=== PATIENT | male | born 1955 | race Caucasian/White ===

== ENCOUNTER → 2016-02-21 | Outpatient (CLI) | payer OTHER ==
--- NOTE | 2016-02-22 07:40 | XR ---
EXAMINATION TYPE: XR chest 2V DATE OF EXAM: 02/21/2016 1:59 PM COMPARISON: 05/11/2015 HISTORY: Shortness of breath TECHNIQUE: Frontal and lateral views of the chest are obtained. FINDINGS: Scattered senescent parenchymal changes noted. Hyperinflation compatible with COPD. Increased density right medial lung base may reflect developing infiltrate. Correlate clinically prog ress studies are recommended. Heart size is stable. Mediastinal structures are stable and grossly unremarkable. No evidence for hilar prominence. Degenerative changes dorsal spine. IMPRESSION: 1. Increased density right medial lung base may reflect developing infiltrate. Correlate clinically p rogress studies are recommended.
== END | disposition home or self-care (01) ==
LOC: RADXRYALE 13:49
PROVIDERS: ATTEND Internal Medicine
DX: J98.4 Other disorders of lung (principal)
CPT/HCPCS: 71020

== ENCOUNTER 2018-09-09 15:55 | Emergency (ER) | payer BC ==
[2018-09-09 16:01] VITALS: BP 153/84; PULSE 77; RESP 16; TEMP 97.8
[2018-09-09] MEDS ORDERED: LIDOCAINE 1% INJ 10MG/ML (20 ML MDV) SQ ONE (16:07)
[2018-09-09] MEDS ORDERED: DIPH,PERTUS(ACELL)TETVAC-LF 0.5 ML VIAL IM ONE (16:07)
--- NOTE | 2018-09-09 16:17 | ED ---
General Adult HPI - General Chief complaint: Wound/Laceration Stated complaint: finger lac Source: patient, RN notes reviewed Mode of arrival: ambulatory Limitations: no limitations - History of Present Illness Initial comments: 63-year-old male presents to the emergency department for a chief complaint of laceration to the left second digit. Patient states less than one hour prior to arrival he was using a table saw when he accidentally cut his finger. States his tetanus is not up-to-date. Denies any other injuries. Denies being on blood thinners.Patient has no other complaints at this time including shortness of breath, chest pain, abdominal pain, nausea or vomiting, headache, or visual changes. - Related Data Home Medications Medication Instructions Recorded Confirmed amLODIPine BESYLATE/BENAZEPRIL 1 tab PO DAILY 05/11/15 05/11/15 [Amlodipine-Benazepril 5-20 mg] Previous Rx's Medication Instructions Recorded Cephalexin [Keflex] 500 mg PO Q6HR 7 Days cap 09/09/18 Allergies Allergy/AdvReac Type Severity Reaction Status Date / Time prednisolone Allergy Rapid Verified 09/09/18 16:01 Heart Rate Review of Systems ROS Statement: Those systems with pertinent positive or pertinent negative responses have been documented in the HPI. ROS Other: All systems not noted in ROS Statement are negative. Past Medical History Past Medical History: Hypertension History of Any Multi-Drug Resistant Organisms: None Reported Past Surgical History: Hernia Repair Past Psychological History: No Psychological Hx Reported Smoking Status: Former smoker Past Alcohol Use History: Occasional Past Drug Use History: None Reported General Exam Limitations: no limitations General appearance: alert, in no apparent distress Head exam: Present: atraumatic, normocephalic, normal inspection Eye exam: Present: normal appearance, PERRL, EOMI. Absent: scleral icterus, conjunctival injection, periorbital swelling ENT exam: Present: normal exam, mucous membranes moist Neck exam: Present: normal inspection, full ROM. Absent: tenderness, meni ngismus, lymphadenopathy Respiratory exam: Present: normal lung sounds bilaterally. Absent: respiratory distress, wheezes, rales, rhonchi, stridor Cardiovascular Exam: Present: regular rate, normal rhythm, normal heart sounds. Absent: systolic murmur, diastolic murmur, rubs, gallop, clicks Extremities exam: Present: normal capillary refill (Capillary refill is 2 seconds in left second digit, radial pulse 2+.), other (4 cm laceration of the left second finger distal phalanx. This extends from the nail bed around to the volar aspect of the finger.) Neurological exam: Present: alert, oriented X3, CN II-XII intact Psychiatric exam: Present: normal affect, normal mood Course Vital Signs 09/09/18 15:57 Temperature 97.8 F Pulse Rate 77 Respiratory 16 Rate Blood Pressure 153/84 O2 Sat by Pulse 96 Oximetry Procedures - Laceration Laceration #1 Consent Obtained: verbal consent Indication: laceration Site: other (Left second digit) Size (cm): 4 Description: irregular Depth: involves muscle layer Anesthetic Used: lidocaine 1% Anesthesia Technique: local infiltration Amount (mls): 6 Pre-repair: wound explored, irrigated extensively (With saline pressure irrigation and 2 L of saline irrigation) Type of Sutures: other (Ethilon) Size of Sutures: 5-0 Number of Sutures: 9 Technique: simple, interrupted Patient Tolerated Procedure: well, no complications Additional Comments: Distal nail was removed to allow for nail bed repair. Proximal nail intact. Medical Decision Making - Medical Decision Making 63-year-old male presents to the emergency department for a chief complaint of laceration to the left second digit. This occurred less than one hour ago by a table saw. Patient was updated on tetanus. X-ray was obtained which was a markedly comminuted fracture of the subingual tuft with associated soft tissue injury. Patient is a 4 cm laceration of the distal phalanx. This was cleaned thoroughly with 2 L of saline water irrigation and followed by saline pressure irrigation. Distal nail was removed to repaired nail bed. 9 sutures were used to loosely tacked together laceration and allow for drainage. Patient was given IM Ancef and a prescription for Keflex. Given Tylenol 3 starter pack. Discussed in depth following up with orthopedics and he was given referrals. Di scussed monitoring for signs of infection thoroughly. Since returning here in 7-10 days for suture removal. Patient will return if he has any signs of infection or other worsening symptoms as well. Disposition Clinical Impression: Open fracture of finger, distal phalanx, Laceration Disposition: HOME SELF-CARE Condition: Good Instructions (If sedation given, give patient instructions): Care For Your Stitches (ED), Laceration (ED), Finger Fracture (ED) Additional Instructions: Please take antibiotics as directed. Take tylenol [address] operate machinery while taking this. Monitor for signs of infection such as redness drainage or fever and return immediately if these occur. Return if you have any other worsening symptoms. Otherwise follow up with orthopedics tomorrow. Prescriptions: Cephalexin [Keflex] 500 mg PO Q6HR 7 Days cap Is patient prescribed a controlled substance at d/c from ED?: No Referrals: Monica Hoffmann MD [Primary Care Provider] - 1-2 days Edwin Trammell DO [Medical Doctor] - 1-2 days Adrien Almaguer DO [Doctor of Osteopathic Medicine] - 1-2 days Time of Disposition: 17:48
[2018-09-09] MEDS ORDERED: ceFAZolin 1,000 MG VIAL (IM USE) IM STA (16:27)
--- NOTE | 2018-09-09 16:29 | XR ---
EXAMINATION TYPE: XR finger LT DATE OF EXAM: 09/09/2018 CLINICAL HISTORY: pain Left second digit. TECHNIQUE: 3 views of the left second digit are submitted. COMPARISON: None FINDINGS: Markedly comminuted fracture subungual tuft with associated soft tissue injury. Joint space s are well-preserved. IMPRESSION: Markedly comminuted fracture subungual tuft with associated soft tissue injury.
[2018-09-09] MEDS ORDERED: ACET/COD 300 MG/30 MG STARTER PACK 6 TAB BTL PO STA (17:49)
== END 2018-09-09 18:13 | disposition home or self-care (01) ==
LOC: EC 15:55
DX: S62.631B Displaced fracture of distal phalanx of left index finger, initial encounter for open fracture (principal); I10 Essential (primary) hypertension; Z23 Encounter for immunization; Z87.891 Personal history of nicotine dependence; Z98.890 Other specified postprocedural states; Z79.899 Other long term (current) drug therapy; Z88.8 Allergy status to other drugs, medicaments and biological substances; W31.2XXA Contact with powered woodworking and forming machines, initial encounter; Y93.89 Activity, other specified
CPT/HCPCS: 73140; 90715; 99283; 11760; 90471; 96372; J0690; J2001

== ENCOUNTER → 2019-03-15 | Outpatient (CLI) | payer MEDICARE ==
--- NOTE | 2019-03-16 12:32 | ECHOF ---
Referral Reason:Cellulitis MEASUREMENTS -------- HEIGHT: 177.8 cm WEIGHT: 90.7 kg BP: IVSd: 1.0 cm (0.6 - 1.1) LVIDd: 5.5 cm (3.9 - 5.3) LVPWd: 1.5 cm (0.6 - 1.1) IVSs: 2.0 cm LVIDs: 3.5 cm LVPWs: 1.8 cm Ao Diam: 3.6 cm (2.0 - 3.7) AV Cusp: 2.3 cm (1.5 - 2.6) LA Diam: 3.1 cm (2.7 - 3.8) MV EXCURSION: 15.488 mm (> 18.000) MV EF SLOPE: 112 mm/s (70 - 150) EPSS: 1.0 cm MV E Al: 0.63 m/s MV DecT: 203 ms MV A Al: 0.91 m/s MV E/A Ratio: 0.69 RAP: 5.00 mmHg RVSP: 15.25 mmHg FINDINGS -------- Sinus rhythm. This was a technically adequate study. The left ventricular size is normal. There is mild concentric left ventricular hypertrophy. Overa ll left ventricular systolic function is normal with, an EF between 55 - 60 %. The right ventricle is normal in size. The left atrial size is normal. The right atrial size is normal. The aortic valve is trileaflet and appears structurally normal. The mitral valve is normal. Mild mitral regurgitation is present. The tricuspid valve appears structurally normal. Mild tricuspid regurgitation present. Right vent ricular systolic pressure is normal at < 35 mmHg. There is no pulmonic regurgitation present. The aortic root size is normal. Normal inferior vena cava with normal inspiratory collapse consistent with estimated right atrial pre ssure of 5 mmHg. There is no pericardial effusion. CONCLUSIONS -------- 1. Sinus rhythm. 2. This was a technically adequate study. 3. The left ventricular size is normal. 4. There is mild concentric left ventricular hypertrophy. 5. Overall left ventricular systolic function is normal with, an EF between 55 - 60 %. 6. The right ventricle is normal in size. 7. The left atrial size is normal. 8. The right atrial size is normal. 9. The aortic valve is trileaflet and appears structurally normal. 10. The mitral valve is normal. 11. Mild mitral regurgitation is present. 12. The tricuspid valve appears structurally normal. 13. Mild tricuspid regurgitation present. 14. Right ventricular systolic pressure is normal at < 35 mmHg. 15. There is no pulmonic regurgitation present. 16. The aortic root size is normal. 17. Normal inferior vena cava with normal inspiratory collapse consistent with estimated right atrial pressure of 5 mmHg. 18. There is no pericardial effusion. PRODUCTION ADMINISTRATIVE ASSISTANT: Carmita Worthy RDCS
== END | disposition home or self-care (01) ==
LOC: RADECHMAIN 14:50
PROVIDERS: ATTEND Internal Medicine
DX: I08.1 Rheumatic disorders of both mitral and tricuspid valves (principal); I21.9 Acute myocardial infarction, unspecified
CPT/HCPCS: 93306

== ENCOUNTER 2021-09-04 07:14 | Day surgery (SDC) | payer MEDICARE ==
[2021-08-31 12:15] VITALS: BMI 26.4
[~2021-09-04 07:14] MED LIST: LACTATED RINGERS 1,000 ML IV SCH
[2021-09-04 07:49] VITALS: TEMP 97.2
[2021-09-04] MEDS ORDERED: PROPOFOL 10 MG/ML 20 ML VIAL IV ONE (08:54)
--- NOTE | 2021-09-04 09:11 | P.PCN ---
Date of Procedure: 09/04/21 Procedure(s) Performed: BRIEF HISTORY: Patient is a 66-year-old pleasant white male scheduled for an elective colonoscopy as a part of evaluation of positive cologuard PROCEDURE PERFORMED: Colonoscopy with snare polypectomy. PREOPERATIVE DIAGNOSIS: Positive cologuard. IV sedation per Anesthesia. PROCEDURE: After informed consent was obtained, the patient, was brought into the endoscopy unit. IV sedation was administered by Anesthesia under continuous monitoring. Digital rectal examination was normal. Initially the Olympus CF-160 flexible video colonoscope was then inserted in the rectum, gradually advanced into the cecum without any difficulty. Careful examination was performed as the scope was gradually being withdrawn. Ileocecal valve and the appendiceal orifice were visualized and appeared normal. Prep was excellent. Mucosa of the cecum, appeared normal. In the ascending colon there was a 5 minute a polyp that was removed by snare polypectomy. In the descending colon there was a 5 mm and 1 cm polyp removed by snare polypectomy. In the sigmoid colon there was a 1 cm polyp removed by snare polypectomy. In the rectum there was a 3 mm polyp removed by snare polypectomy. Scattered sigmoid diverticulosis seen. Retroflexion was performed in the rectum and small internal hemorrhoids were seen. The patient tolerated the procedure well. IMPRESSION: 5 mm ascending colon polyp status post polypectomy 5 mm and 1 cdescending colonpolyps status post polypectomy 1 cm sigmoid colon polyp status post polypectomy 3 mm rectal polyp status post polypectomy Scattered sigmoid diverticulosis Grade 2 internal hemorrhoids RECOMMENDATIONS: Findings of this examination were discussed with the patient [.as well as his family. He was advised to follow with the biopsy comes. If the biopsies adenoma he can have a repeat colonoscopy in 3 years.
[2021-09-04 09:30] VITALS: BP 156/85; PULSE 58; RESP 18
== END 2021-09-04 09:48 | disposition home or self-care (01) ==
LOC: ORWHC2ENDO 07:14
PROVIDERS: ATTEND Internal Medicine Gastroenterology
DX: D12.2 Benign neoplasm of ascending colon (principal); D12.4 Benign neoplasm of descending colon; D12.5 Benign neoplasm of sigmoid colon; D12.8 Benign neoplasm of rectum; K57.30 Diverticulosis of large intestine without perforation or abscess without bleeding; K64.1 Second degree hemorrhoids; I10 Essential (primary) hypertension; Z88.8 Allergy status to other drugs, medicaments and biological substances; Z87.891 Personal history of nicotine dependence; Z79.899 Other long term (current) drug therapy; Z79.51 Long term (current) use of inhaled steroids; Z80.9 Family history of malignant neoplasm, unspecified
CPT/HCPCS: 88305; 45385; J2704

== ENCOUNTER → 2022-05-06 | Outpatient (CLI) | payer MEDICARE ==
--- NOTE | 2022-05-06 10:58 | XR ---
EXAMINATION TYPE: XR abdomen 1V DATE OF EXAM: 05/06/2022 10:30 AM CLINICAL HISTORY: Mid abdominal pain into back TECHNIQUE: Two Upright KUB images of the abdomen are obtained. COMPARISON: None. FINDINGS: Scattered gas is seen in non-distended small bowel loops. Gas and fecal material is seen in non-distended colon. Multilevel spurring in the thoracolumbar spine. Dextroconvex scoliosis is prese nt at the thoracolumbar junction. Small to tiny right pleural effusion. No free air. Lung bases are c lear. IMPRESSION: Overall nonobstructive bowel gas pattern.
== END | disposition home or self-care (01) ==
LOC: RADXRYALE 10:11
PROVIDERS: ATTEND Physician Assistant Medical
DX: R14.0 Abdominal distension (gaseous) (principal); M54.50 Low back pain, unspecified; I10 Essential (primary) hypertension; R60.9 Edema, unspecified
CPT/HCPCS: 74018

== ENCOUNTER → 2022-05-06 | Outpatient (CLI) | payer MEDICARE ==
--- NOTE | 2022-05-06 17:08 | CT ---
EXAMINATION TYPE: CT angio abdomen pelvis DATE OF EXAM: 05/06/2022 COMPARISON: NONE HISTORY: 67-year-old male I10 M54.50 R14.0 J93.9, R/O aortic aneurysm. TECHNIQUE: Contiguous axial scanning of the abdomen and pelvis before and after administration of 100 ml Isovue-370 IV contrast. Coronal/sagittal MIP reconstructions performed. 3-D reconstructions gene rated on a dedicated independent workstation. CT DLP: 2586 mGycm Automated exposure control for dose reduction was used. FINDINGS: ABDOMEN AND PELVIS: Heart is upper limits of normal in size without pericardial effusion. Three-vessel coronary calcifica tions are present and are a marker for coronary artery disease. There is a small right pleural effusion noted with adjacent atelectasis. Early arterial phase imaging of the liver, gallbladder, adrenal glands, left kidney, spleen, and panc reas within normal limits. A 1.2 cm cortical hypodensity lateral right kidney too small for accurate CT characterization, probab le cyst. No dilated small bowel, free fluid, or free air. No mesenteric or retroperitoneal lymphadenopathy. Normal appendix. Mild to moderate stool burden. Left-sided colonic diverticulosis, greatest in the pr oximal to mid sigmoid colon. No abnormal wall thickening is seen. No surrounding inflammation. Mild circumferential bladder wall thickening. Prostatomegaly 5.4 cm wide. Prominent median lobe hyper trophy impressing into the base of the bladder. There is a 9.0 cm long by 4.1 cm wide fatty left inguinal hernia. Some asymmetrically prominent left inguinal space lymph nodes measuring up to 1.6 cm short axis may b e reactive/post inflammatory. Clinical follow-up recommended. BONES: * There is a minimally displaced fracture of the left posterior 10th rib. * DISH in the lower thoracic spine. * Degenerative bony ankylosis of the SI joints. * Mild degenerative change in both hips. VASCULATURE: Moderate to advanced atherosclerotic calcifications and plaque throughout the abdominal aorta and kacey ac arteries. * Mild atherosclerotic narrowing proximal right celiac axis. * Mild atherosclerotic narrowing throughout the proximal and mid SMA. * Moderate atherosclerotic narrowing at the origin of the right renal artery and mild at the proxima l left renal artery. * A patent TAMMY is noted. * Lobulated fusiform dilatations of the infrarenal abdominal aorta. * Upper aneurysm measuring up to 3.6 cm. Circumferential crescentic plaque and calcifications are pr esent throughout. Patent lumen narrowing down to 1.9 cm at this level. * Mild aneurysm distal abdominal aorta 3.1 cm. Right: * Moderate to severe plaque and calcification is present. * Moderate segmental stenoses right common iliac artery. * Severe stenosis origin of the right internal iliac artery. * Severe focal stenosis proximal right external iliac artery. * Severe stenoses followed by eventual occlusion up or right SFA. The PFA is patent. Left: * Moderate to severe plaque and calcification is present. 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 * Severe stenosis at the common iliac artery bifurcation as well as the origin of the internal iliac artery. Subtotal occlusion to severe stenosis origin of the left external iliac artery. * The PFA is patent. * There is occlusion of the SFA just after its origin. IMPRESSION: 1. Minimally displaced fracture of the left posterior 10th rib. Clinically correlate. 2. MODERATE TO ADVANCED ATHEROSCLEROTIC CHANGE THROUGHOUT. 3. THE INFRARENAL ABDOMINAL AORTA IS DIFFUSELY ECTATIC. MID ABDOMINAL AORTA is aneurysmal up to 3.6 cm. The lumen is narrowed down to 1.9 cm secondary to plaque. Distal abdominal aorta is aneurysmal at 3.1 cm. 4. Moderate and severe stenoses throughout the bilateral iliac systems as outlined above. There is a lso occlusion of the upper right SFA and proximal left SFA. The PFAs remain patent. Recommend vascul ar surgery referral. 5. 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 6. Moderate sized fatty left inguinal hernia. 7. Small right pleural effusion with adjacent atelectasis. CAD with 3 vessel coronary artery calcifi cations. 8. Left-sided colonic diverticulosis greatest along the proximal to mid sigmoid colon. No evidence f or acute diverticulitis. 9. Prostatomegaly at 5.2 cm wide with soft tissue extending into the base of the bladder, likely BPH . Correlate with patient's symptoms.
== END | disposition home or self-care (01) ==
LOC: RADCTMAIN 14:37
PROVIDERS: ATTEND Family Medicine
DX: S22.32XA Fracture of one rib, left side, initial encounter for closed fracture (principal); I10 Essential (primary) hypertension; I77.811 Abdominal aortic ectasia; K40.90 Unilateral inguinal hernia, without obstruction or gangrene, not specified as recurrent; I25.10 Atherosclerotic heart disease of native coronary artery without angina pectoris; R14.0 Abdominal distension (gaseous); J93.9 Pneumothorax, unspecified; I72.3 Aneurysm of iliac artery; J90 Pleural effusion, not elsewhere classified; J98.11 Atelectasis; K57.30 Diverticulosis of large intestine without perforation or abscess without bleeding; N40.0 Benign prostatic hyperplasia without lower urinary tract symptoms; M54.50 Low back pain, unspecified
CPT/HCPCS: 82565; 84520; 36415; 74174; Q9967

== ENCOUNTER → 2022-05-15 | Outpatient (CLI) | payer MEDICARE ==
--- NOTE | 2022-05-15 15:11 | XR ---
EXAMINATION TYPE: XR lumbosacral spine min 4V DATE OF EXAM: 05/15/2022 COMPARISON: None HISTORY: Degenerative disc change, fall, injury TECHNIQUE: 5 view lumbar spine. AP view is not included. FINDINGS: There is narrowing of the L4-5 disc height. Some posterior disc space narrowing is present at L3-4. Remaining disc heights are preserved. Vertebral body heights are preserved. Mild facet degen erative changes present through the lumbar spine. No spondylolytic defects are evident. Right tibia p erformed as clinically indicated IMPRESSION: 1. Mild degenerative disc changes discussed above
== END | disposition home or self-care (01) ==
LOC: RADXRYALE 14:26
PROVIDERS: ATTEND Physician Assistant Medical
DX: M51.36 Other intervertebral disc degeneration, lumbar region (principal); W01.10XD Fall on same level from slipping, tripping and stumbling with subsequent striking against unspecified object, subsequent encounter
CPT/HCPCS: 72110

== ENCOUNTER → 2022-09-03 | Outpatient (CLI) | payer MEDICARE ==
--- NOTE | 2022-09-03 19:09 | XR ---
EXAMINATION TYPE: XR chest 2V DATE OF EXAM: 09/03/2022 COMPARISON: 04/14/2022 HISTORY: 67-year-old male J449, I872 COPD, VENOUS INSUFF TECHNIQUE: Frontal and lateral views FINDINGS: Heart normal size. Aorta and pelvic vasculature within normal limits. Mild hyperinflation. No consoli dation or pleural effusion. IMPRESSION: Possible underlying COPD. Clinically correlate. Otherwise, no acute process seen.
== END | disposition home or self-care (01) ==
LOC: RADXRYALE 15:21
PROVIDERS: ATTEND Physician Assistant Medical
DX: J44.9 Chronic obstructive pulmonary disease, unspecified (principal); I87.2 Venous insufficiency (chronic) (peripheral)
CPT/HCPCS: 71046

== ENCOUNTER → 2022-12-24 | Outpatient (CLI) | payer MEDICARE ==
--- NOTE | 2022-12-24 15:23 | XR ---
EXAMINATION TYPE: XR shoulder complete RT DATE OF EXAM: 12/24/2022 3:14 PM INDICATION: Patient age:Male; 67 years old; Reason for study: [id number] RT SHLD PAIN; COMPARISON: Right shoulder radiograph 04/12/2022 TECHNIQUE: The right shoulder was examined in AP, internally rotated and scapular Y projections. . FINDINGS: There is no acute fracture/dislocation evident. There is mild narrowing of the glenohumeral joint spa ce. Mild narrowing of the AC joint with superior spurring capsular hypertrophy. The visualized ribs a re intact and unremarkable. IMPRESSION: 1. No acute osseous pathology. 2. Mild AC joint arthropathy.
== END | disposition home or self-care (01) ==
LOC: RADXRYALE 15:03
PROVIDERS: ATTEND Physician Assistant Medical
DX: M19.011 Primary osteoarthritis, right shoulder (principal)

== ENCOUNTER → 2022-12-30 | Outpatient (CLI) | payer MEDICARE ==
--- NOTE | 2022-12-30 13:53 | US ---
EXAMINATION TYPE: US venous doppler duplex UE RT DATE OF EXAM: 12/30/2022 COMPARISON: NONE CLINICAL INDICATION: Male, 67 years old with history of R22.31 Localized swelling, mass and lump; Gerald ma right hand, difficult to move right shoulder SIDE PERFORMED: right Right Arm: No evidence of DVT IMPRESSION: Grayscale, color doppler, spectral doppler imaging performed of the deep veins of the upper extremiti es. There is normal flow, compressibility and vascular waveforms.
== END | disposition home or self-care (01) ==
LOC: RADUSWWP 12:52
PROVIDERS: ATTEND Family Medicine
DX: I73.9 Peripheral vascular disease, unspecified (principal); M25.511 Pain in right shoulder; R22.31 Localized swelling, mass and lump, right upper limb